=== PATIENT | male | born 1955 | race Caucasian/White ===

== ENCOUNTER → 2023-06-25 12:49 | Outpatient (BNVA) | payer MEDICARE, OTHER, SELFPAY | PROVIDERS: PCP Family Medicine; Visit Provider Family Medicine | DX: E78.00 Pure hypercholesterolemia, unspecified (principal); E11.9 Type 2 diabetes mellitus without complications; I10 Essential (primary) hypertension | CPT/HCPCS: 80053; 80061; 83036; 85025 ==

== ENCOUNTER → 2023-07-10 12:53 | Outpatient (BNVA) | payer MEDICARE, OTHER, SELFPAY | PROVIDERS: PCP Family Medicine; Visit Provider Family Medicine | DX: R07.9 Chest pain, unspecified (principal); I10 Essential (primary) hypertension; K92.2 Gastrointestinal hemorrhage, unspecified; K29.01 Acute gastritis with bleeding; E11.9 Type 2 diabetes mellitus without complications | CPT/HCPCS: 80053; 85025 ==

== ENCOUNTER → 2023-07-16 13:05 | Outpatient (BNVA) | payer MEDICARE, OTHER, SELFPAY | PROVIDERS: PCP Family Medicine; Visit Provider Surgery | DX: K27.9 Peptic ulcer, site unspecified, unspecified as acute or chronic, without hemorrhage or perforation (principal) | CPT/HCPCS: 99204 ==

== ENCOUNTER 2023-08-08 13:00 | Outpatient (CLI) | payer MEDICARE, OTHER, SELFPAY ==
--- NOTE | 2023-08-08 12:59 | MR_ITS ---
WS: [id number] MRI HEAD WITH CONTRAST WITH ATTENTION TO THE INTERNAL AUDITORY CANALS TECHNIQUE: Sagittal T1, T2 axial, T2 axial flair, axial susceptibility weighted imaging, axial diffus ion weighted images, and coronal T2 images were obtained. Pre and post T1 axial and post T1 coronal i mages. ADC and FSPGR images. Post gadolinium images with attention to the internal auditory canals. A xial fiesta imaging. CLINICAL INFORMATION: UNSPECIFIED HEARING LOSS, BILATERAL COMPARISON: None. FINDINGS: Enhancing lesion in the LEFT CP angle extending into the LEFT porus acusticus and IAC compatible with vestibular schwannoma. This measures approximately 10.8 x 7.4 mm. RIGHT 7th and 8th cranial nerves a re normal in appearance. Normal trigeminal nerve root entry zones. No evidence of restricted diffusion to suggest acute ischemia. Minimal small vessel changes. No signi ficant parenchymal volume loss. No hemosiderin on the susceptibly weighted images. Normal optic chias m and pituitary infundibulum. Temporal lobes and hippocampal formations are normal in appearance. No other suspicious findings. MR/MR iac's wo/w con* [id number] IMPRESSION: 1. No evidence of restricted diffusion to suggest acute ischemia. 2. Enhancing vestibular schwannoma within the LEFT CP angle extending into the porus acusticus and IAC. This measures approximately 10.8 x 7.4 mm. 3. RIGHT 7th and 8th cranial nerves are normal in appearance. 4. Normal trigeminal nerve root entry zones. 5. Minimal small vessel changes. No significant parenchymal volume loss. 6. No other acute findings.
[2023-08-08] MEDS: gadobenate dimeglumine 20 mL vial IV (13:36)
== END 2023-08-08 13:01 | disposition home or self-care (01) ==
PROVIDERS: PCP Family Medicine; Visit Provider Specialist
DX: H91.93 Unspecified hearing loss, bilateral (principal)
CPT/HCPCS: 70553; A9577

== ENCOUNTER 2023-08-13 08:39 | Day surgery (SDC) | payer MEDICARE, OTHER, SELFPAY ==
[2023-08-13 08:59] VITALS: BP 168/76; PULSE 76; RESP 18; TEMP 36.4; O2SAT 98; BMI 28.2
--- NOTE | 2023-08-13 09:13 | ANES.PREANE2 ---
Pre-Anesthetic Assessment Height/Weight: Height 1.68 m Weight 79.379 kg Temp Pulse Resp BP Pulse Ox O2 Del Method 97.6 F 76 18 168/76 98 Room Air 08/13/23 08:59 08/13/23 08:59 08/13/23 08:59 08/13/23 08:59 08/13/23 08:59 08/13/23 08:59 Operation Date: 08/13/23 09:45 Proposed Procedures p EGD 98062, K27.9(Not Applicable) - Kingston Santacruz MD Was Beta Elaine taken within 24 hours: N/A Was Clonidine taken within 24 hours: N/A Last intake: Intake Last Liquid Date 08/12/23 Last Liquid Time 22:00 Last Solid Date 08/12/23 Last Solid Time 22:00 Social Tobacco (cigars) Exam alert and oriented x 3 Airway Submandibular: within normal limits Cervical ROM: within normal limits Mallampati: Class II Dentition: full History/ROS No significant history except as noted Pulmonary Sleep Apnea (CPAP) CV/HEM Hypertension kidney stones Hepatic None reported GI history of bleeding ulcer Metabolic Diabetes Mellitus [facility] None reported Neuropsych None reported Anesthetic Plan ASA status: 2 Anesthesia: MAC Risk of > 500 ml blood loss (7ml/kg in children): No Medications/Allergies Home Medications Medication Instructions Recorded Confirmed Last Taken Type atorvastatin 10 mg tablet (Lipitor) 10 mg PO DAILY #90 tabs 06/25/23 08/08/23 08/12/23 Rx fenofibrate nanocrystallized 145 145 mg PO DAILY #90 tabs 06/25/23 08/08/23 08/12/23 Rx mg tablet loratadine 10 mg disintegrating 10 mg PO DAILY PRN allergy 06/25/23 08/08/23 08/12/23 Rx tablet (Allergy Relief symptoms #90 tabs (loratadine)) sitagliptin phosphate 100 mg 100 mg PO DAILY #90 tabs 07/12/23 08/08/23 08/12/23 Rx tablet (Januvia) pantoprazole 40 mg tablet,delayed 40 mg PO BID 6 weeks #84 tabs 07/16/23 08/08/23 08/13/23 07:45 Rx release (Protonix) sucralfate 100 mg/mL oral 10 ml PO BID 30 days #840 mL 05/08/08/23 08/12/23 Rx suspension tamsulosin 0.4 mg capsule (Flomax) 0.4 mg PO DAILY 08/08/23 08/08/23 08/12/23 History valsartan 40 mg tablet (Diovan) 40 mg PO BID 08/08/23 08/08/23 08/12/23 History atdhfblg-dn-oxkec 300 mcg-K 60 1 tab PO DAILY 08/13/23 08/13/23 08/12/23 History mcg-lycop 600 mcg-lutein 300 mcg tablet (Centrum Silver Men) omega-3 fatty acids-fish oil 360 1 cap PO DAILY 08/13/23 08/13/23 08/12/23 History mg-1,200 mg capsule (Fish Oil) Allergies Allergy/AdvReac Type Severity Reaction Status Date / Time hydrocodone AdvReac Intermediate ADR-Nightma Verified 08/08/23 11:02 re [facility] Anesthesia Medical History Essential hypertension Type 2 diabetes mellitus Hypercholesteremia Data Anesthesia Cardiac Studies: No Data to Display
[2023-08-13] MEDS: sodium chloride 0.9% 1,000 ML 30 ML IV (09:14)
--- NOTE | 2023-08-13 09:14 | P.HPUD_ITS ---
Surgery/Procedure H&P Update DATE OF PROCEDURE: August 13, 2023 DATE H&P PERFORMED: 07/16/23 H&P UPDATE INFORMATION: I have reviewed H&P completed within last 30 days, I have examined patient prior to procedure, No changes to prior documentation and H&P is in [facility] [place] on date indicated PLANNED PROCEDURE: Operation Date: 08/13/23 09:45 Proposed Procedures p EGD 94843, K27.9(Not Applicable) - Kingston Santacruz MD
[2023-08-13 09:22] LABS: Glucose Point of Care 141 mg/dL (70-110)
[2023-08-13 09:54] VITALS: BP 126/54; PULSE 62; RESP 18; TEMP 36.5; O2SAT 95
[2023-08-13 10:04] VITALS: BP 136/68; PULSE 66; RESP 16; O2SAT 96
--- NOTE | 2023-08-13 10:40 | ANE.PACU2 ---
Inpatient post-anesthesia follow up: Airway intact: Yes Vital signs: Temperature 97.7 F Pulse Rate 66 Respiratory Rate 16 Blood Pressure 136/68 Pulse Oximetry 96 Oxygen Delivery Me thod Room Air Oxygen Flow Rate Fraction of Inspir ed Oxygen Hydration adequate: Yes Nausea and vomiting: No Pain level: 1 Mental status: Baseline
== END 2023-08-13 10:40 | disposition home or self-care (01) ==
PROVIDERS: PCP Family Medicine; Visit Provider Surgery
PROC: 0DJ08ZZ Inspection of Upper Intestinal Tract, Via Natural or Artificial Opening Endoscopic (ICD-10-PCS; CPT 43235; principal; 2023-08-13 09:45)
DX: K27.9 Peptic ulcer, site unspecified, unspecified as acute or chronic, without hemorrhage or perforation (principal); K29.80 Duodenitis without bleeding; K29.50 Unspecified chronic gastritis without bleeding; E11.9 Type 2 diabetes mellitus without complications; E78.00 Pure hypercholesterolemia, unspecified
CPT/HCPCS: 36416; 43239; 82962; 88305; J2704; J7030

== ENCOUNTER → 2023-09-11 14:28 | Outpatient (BNVA) | payer MEDICARE, OTHER, SELFPAY | PROVIDERS: PCP Family Medicine; Visit Provider Surgery | DX: Z09 Encounter for follow-up examination after completed treatment for conditions other than malignant neoplasm (principal); R03.0 Elevated blood-pressure reading, without diagnosis of hypertension | CPT/HCPCS: 99213 ==

== ENCOUNTER → 2024-01-06 14:10 | Outpatient (BNVA) | payer MEDICARE, OTHER, SELFPAY | PROVIDERS: PCP Family Medicine; Visit Provider Family Medicine | DX: E11.9 Type 2 diabetes mellitus without complications (principal); E78.00 Pure hypercholesterolemia, unspecified | CPT/HCPCS: 80053; 82465; 83036 ==

== ENCOUNTER 2024-03-24 14:17 | Outpatient (CLI) | payer MEDICARE, OTHER, SELFPAY ==
--- NOTE | 2024-03-24 14:24 | MR_ITS ---
WS: [id number] MRI HEAD WITH CONTRAST WITH ATTENTION TO THE INTERNAL AUDITORY CANALS TECHNIQUE: Sagittal T1, T2 axial, T2 axial flair, axial susceptibility weighted imaging, axial diffusion weighted images, and coronal T2 images were obtained. Pre and post T1 axial and post T1 coronal images. ADC and FSPGR images. Post gadolinium images with attention to the internal auditory canals. Axial fiesta imaging. CLINICAL INFORMATION: ASYMMETRIC SNHL COMPARISON: MRI 08/08/2023 FINDINGS: Again seen is enhancing CP angle lesion extending into the LEFT porus acusticus and IAC compatible with vestibular schwannoma. This is not significantly changed compared to previous. Measurements are unchanged measuring 10.8 x 7.5 cm. No evidence of progression. RIGHT 7th and 8th cranial nerves are normal in appearance. Normal trigeminal nerve root entry zones. No evidence of restricted diffusion to suggest acute ischemia. Minimal small vessel changes. Small vessel changes in the anna. Minimal parenchymal volume loss. No hemosiderin on the susceptibly weighted images. Normal optic chiasm and pituitary infundibulum. Temporal lobes and hippocampal formations are normal in appearance. Incidental maryann cisterna magna. No other changes compared to previous MR/MR iac's wo/w con* [id number] IMPRESSION: 1. Unchanged LEFT vestibular schwannoma described above
[2024-03-24] MEDS: gadobenate dimeglumine 20 mL vial IV (15:22)
== END 2024-03-24 14:18 | disposition home or self-care (01) ==
LOC: RAD 14:18
PROVIDERS: PCP Family Medicine; Visit Provider Otolaryngology Otology & Neurotology
DX: H90.3 Sensorineural hearing loss, bilateral (principal); D33.3 Benign neoplasm of cranial nerves; R93.0 Abnormal findings on diagnostic imaging of skull and head, not elsewhere classified
CPT/HCPCS: 70553

== ENCOUNTER 2024-09-06 15:17 | Inpatient (IN) | payer MEDICARE, OTHER, SELFPAY ==
[2024-09-06] VITALS (11 sets, daily range): BP systolic 178–201; BP diastolic 82–106; PULSE 70–98; RESP 12–18; TEMP 36.8; O2SAT 98–100; BMI 30.8
--- NOTE | 2024-09-06 15:29 | CTR_ITS ---
PROCEDURE INFORMATION: Exam: CT Head Without Contrast Exam date and time: 09/06/2024 3:26 PM Age: 69 years old Clinical indication: Stroke-like symptoms; Altered mental status/memory loss; Additional info: Symptoms of acute stroke TECHNIQUE: Imaging protocol: Computed tomography of the head without contrast. Radiation optimization: All CT scans at this facility use at least one of these dose optimization techniques: automated exposure control; mA and/or kV adjustment per patient size (includes targeted exams where dose is matched to clinical indication); or iterative reconstruction. Other technique: STROKE PROTOCOL was implemented. COMPARISON: MR fitzgerald's wo/w con* [id number] 03/24/2024 2:39 PM RADIATION DOSE METRICS: Total DLP (mGy-cm): 1024.98 FINDINGS: Brain: No evidence of intra-axial or extra-axial hemorrhage. No mass effect or midline shift. Patchy hypoattenuation in the right frontal lobe white matter, age-indeterminate. Mclaughlin-white differentiation is otherwise maintained. Basilar cisterns are patent. Cerebral ventricles: No hydrocephalus. Paranasal sinuses: The visualized paranasal sinuses are well aerated. Mastoid air cells: The visualized mastoids and middle ears are clear. Bones: Calvarium is intact. No evidence of acute fracture. Soft tissues: No gross soft tissue abnormality. CT/CT head thrombolytic [id number] IMPRESSION: 1. Age-indeterminate right frontal lobe deep white matter hypodensities. Consider correlation with MRI for further evaluation. No evidence of large vascular territory infarct. ASSESSMENT: ASPECTS ([place] Stroke Program Early CT Score) is 10.
--- OUTSIDE RECORDS SUMMARY | 2024-09-06 15:29 | XMS_ITS | Clinical Summary ---
Author Organization [facility] Address [address] [place] [address] Care Team Providers Care Sales Operations Name Role Phone Unavailable Primary Care Provider Unavailabl e Allergies No known active allergies Medications SITagliptin phosphate (JANUVIA) 100 mg Tablet Take 100 mg by mouth daily with breakfast. Active pantoprazole (PROTONIX) 40 mg Tablet, Delayed Release (E.C.) Take 40 mg by mouth daily. Active tamsulosin (FLOMAX) 0.4 mg capsule Take 0.4 mg by mouth daily. Active valsartan (DIOVAN) 40 mg tablet Take 40 mg by mouth daily. Active Active Problems Problem Noted Date Diagnosed Date Unilateral vestibular schwannoma 01/07/2024 Asymmetric SNHL (sensorineural hearing loss) Encounters Date Type Department Care Team Description 08/11/2024 External Device Data [facility] ABSTRACTION Provider, Abstract 07/14/2024 External Device Data [facility] ABSTRACTION Provider, Abstract from Last 3 Months Family History Medical History Relation Name Comments Diabetes Father Diabetes Mother Diabetes Sister Hypertension Sister Relation Name Status Comments Father Mother Sister Social History Tobacco Use Types Packs/Day Years Used Date Smoking Tobacco: Former Cigarettes Q uit: 01/21/2004 Alcohol Use Standard Drinks/Week Comments Yes 1 (1 standard drink = 0.6 oz pur e alcohol) Sex and Gender Information Value Date Recorded Sex Assigned at Male 01/01/2024 3:01 PM [employer] Legal Sex Male 3:05 PM CDT Gender Identity Male 01/01/2024 3:01 PM [employer] Sexual Orientation Straight 01/01/2024 3: 01 PM [employer] Last Filed Vital Signs Vital Sign Reading Time Taken Comments Blood Pressure - - Pulse - - Temperature - - Respiratory Rate - - Oxygen Saturation - - Inhaled Oxygen Concentration - - Weight 89.9 kg (198 lb 3.2 oz) 01/07/2024 2:33 P M [employer] Height 167.6 cm (5' 6 ) 01/07/2024 2:33 PM [employer] Body Mass Index 31.99 01/07/2024 2:33 PM [employer] Plan of Treatment Health Maintenance Due Date Last Done Comments Pre-Diabetes and Diabetes Screening 1955 DTAP/TDAP/TD VACCINES (1 - Tdap) 1974 COLORECTAL SCREENING 2000 Colorectal Cancer Screening 2000 FIT-DNA Q 3 years 2000 FIT/FOBT Q 1 year 2000 Flex Sig/CT Colonography Q 5 years 2000 PNEUMOCOCCAL VACCINE 50+ YEARS (1 of 1 - PCV) 03/31/19 06 ZOSTER VACCINE (1 of 2) 2005 Abdominal Aortic Aneurysm (AAA) Screening 2020 INFLUENZA VACCINE (#1) 2024 RSV VACCINE (60+ or ) (1 - 1-dose 75+ series) 2030 Insurance [employer] MEDICARE PART A AND B
[2024-09-06 15:40] LABS: Hematocrit 37.6 % (37-53); Hemoglobin 12.50 g/dL (11.27-16.99); Mean Corpuscular HGB Conc 33.2 g/dL (30-55); Mean Corpuscular Hemoglobin 30.9 pg (27-33); Mean Corpuscular Volume 92.8 fl (82-101); Nucleated Red Blood Cells % 0 %; Platelet Count 166 10^3/cmm (157-399); Red Blood Count 4.05 10^6/uL (3.85-5.65); White Blood Count 7.98 10^3/uL (3.29-11.43)
[2024-09-06 15:48] LABS: INR 0.87 (0.8-1.2); Partial Thromboplastin Time 25.3 SECONDS (23.9-36.7); Prothrombin Time 12.50 SECONDS (12.1-14.9)
--- NOTE | 2024-09-06 15:52 | ECG_ITS ---
[facility] Date: 2024-09-06 Pat Name: Shay Mock Department: Room: Gender: Male Paper Stripper: : 1955 Requested By: Gracie Villalobos Order Number: [id number] Maria Victoria MD: Stiven Hendricks M.D. Measurements Intervals [place] Rate: 86 P: 58 IN: 140 QRS: 3 QRSD: 91 T: 52 QT: 370 QTc: 443 Interpretive Statements SINUS RHYTHM No previous ECG available for comparison Electronically Signed On 09-06-2024 18:32:57 CDT by Stiven Hendricks M.D. [id number] [email or web address]
--- NOTE | 2024-09-06 16:06 | MRR_ITS ---
PROCEDURE INFORMATION: Exam: MR Head Without Contrast Exam date and time: 09/06/2024 4:11 PM Age: 69 years old Clinical indication: Speech disturbance and weakness, extremity and weakness, facial; Right; Slurred speech; Additional info: AMS, right sided weakness, slurred speech TECHNIQUE: Imaging protocol: Magnetic resonance imaging of the head without contrast. COMPARISON: CT head thrombolytic [id number] 09/06/2024 3:26 PM FINDINGS: Brain: 6 mm focus of increased signal on diffusion-weighted images within the left basal ganglia in the region of the posterior limb of the internal capsule with mild decreased signal on ADC images suggestive of an acute-subacute infarct (image 14 of series 302/303). Background of periventricular and deep white matter T2 FLAIR hyperintensities compatible with sequela of mild chronic microvascular ischemic changes. Chronic infarct involving the body of the right corpus callosum. Again seen is a mass in the left cerebellar pontine angle extending into the porous acusticus compatible with a vestibular schwannoma, grossly unchanged since prior exam from March 2024. Cerebral ventricles: No hydrocephalus. Bones: Unremarkable. Paranasal sinuses: The visualized paranasal sinuses are well aerated. Mastoid air cells: The mastoids and middle ears are grossly clear without evidence of effusion. Orbital cavities: The visualized orbits are unremarkable. Soft tissues: Grossly unremarkable. MR/MR head wo con* [id number] IMPRESSION: 1. Acute-subacute subcentimeter left basal ganglia lacunar infarct. 2. Left-sided vestibular schwannoma.
[2024-09-06 16:23] LABS: Alanine Aminotransferase 7 U/L (0-41); Albumin Level 3.7 g/dL (3.5-5.2); Alkaline Phosphatase 35 U/L (40-130); Anion Gap 18.8 (5-19); Aspartate Amino Transferase 9 U/L (0-40); Blood Urea Nitrogen 46 mg/dL (8-23); Calcium 8.6 mg/dL (8.5-10.5); Carbon Dioxide 17 mmol/L (22-29); Chloride 109 mmol/L (98-107); Creatinine Clr Calc Pharmacy 22.4754; Globulin 2.5 g/dL (1.3-4.6); Glucose 184 mg/dL (65-115); Osmolality Calculated 305 mOsm/kg (285-295); Potassium 5.8 mmol/L (3.5-5.1); Sodium 139 mmol/L (136-145); Total Protein 6.2 g/dL (6.6-8.7)
--- NOTE | 2024-09-06 16:56 | DCPLANNER ---
Initiated Stroke call to [facility] @[phone]. The return call was @[phone]
[2024-09-06 17:37] LABS: Glucose Urine UA Negative (Normal); Nitrate Urine Negative (Negative); Specific Gravity, Urine 1.015 (1.005-1.030)
[2024-09-06 17:41] LABS: Add Urine Microscopic? YES
--- NOTE | 2024-09-06 18:04 | W.ED.NEUROSD ---
HPI - Neuro Symptoms/Deficit General: Chief Complaint: Neuro Symptoms/Deficit Stated Complaint: right side weakness Time Seen by Provider: 09/06/24 15:29 History of Present Illness: This patient is a 69-year-old male presenting to the ER with right-sided weakness and difficulty walking. He said he woke up at around 6 AM this morning and went to the bathroom with no difficulty. He went back to bed and woke up again about 10 AM. At that time he noted weakness on his right side, slurred speech, facial droop. He had some difficulty walking. He did not come into the ER until approximately 3:00 this afternoon. He was immediately recognized as a stroke and stroke alert was called. CT was done and did not show any acute infarct. MRI was available this afternoon and an MRI was done showing an acute left basal ganglia stroke. He also has a history of a left vestibular schwannoma which is followed by MRI. This appeared unchanged. Related Data Home Medications ?Medication ?Instructions ?Recorded ?Confirmed tamsulosin 0.4 mg capsule (Flomax) 0.4 mg PO DAILY 08/08/23 01/06/24 avmtgzph-er-rjtfn 300 mcg-K 60 1 tab PO DAILY 08/13/23 01/06/24 mcg-lycop 600 mcg-lutein 300 mcg tablet (Centrum Silver Men) omega-3 fatty acids-fish oil 360 1 cap PO DAILY 08/13/23 01/06/24 mg-1,200 mg capsule (Fish Oil) Previous Rx's ?Medication ?Instructions ?Recorded fenofibrate nanocrystallized 145 145 mg PO DAILY #90 tabs 06/25/23 mg tablet loratadine 10 mg disintegrating 10 mg PO DAILY PRN allergy 06/25/23 tablet (Allergy Relief symptoms #90 tabs (loratadine)) atorvastatin 20 mg tablet 20 mg PO DAILY #90 tabs 01/06/24 freestyle test strips/lancets #1 ea 04/06/24 pantoprazole 40 mg tablet,delayed 40 mg PO ONCE 30 days #30 tabs 05/11/24 release (Protonix) sitagliptin phosphate 100 mg See Rx Instructions .Route 06/01/24 tablet (Januvia) .COMPLEX #90 tabs valsartan 40 mg tablet See Rx Instructions .Route 07/27/24 .COMPLEX #180 tabs Allergies Allergy/AdvReac Type Severity Reaction Status Date / Time hydrocodone AdvReac Intermediate ADR-Nightma Verified 01/06/24 13:03 re [facility]: Medical History (Updated 09/06/24 @ 18:10 by Gracie Vincent MD) Essential hypertension Type 2 diabetes mellitus Hypercholesteremia Social History Smoking and tobacco/nicotine status: current every day tobacco/nicotine user NIH stroke score NIHSS: Motor Arm Right - 5: Drift Motor Leg Right - 6: Drift Dysarthia - 10: Mild/Moderate Dysarthia Physical Exam Const: COMMON NORMALS: no acute distress, patient oriented x3, no limitations and alert GENERAL APPEARANCE: cooperative and comfortable HENMT: HEAD & SCALP: normal to inspection FACE & SINUS: normal facial exam Eye: GENERAL EYE: appearance normal, both eyes and all related structures Neck/C-Spine: COMMON NORMALS: supple, no meningeal signs and no JVD Chest: COMMONS NORMALS: normal inspection of the chest Resp: COMMON NORMALS: normal respiratory effort, No use of accessory muscles and clear to auscultation bilaterally AUSCULTATION: clear to auscultation bilaterally Cardio: COMMON NORMALS: no JVD, regular rate, regular rhythm and No murmurs present (Cardio) RATE: regular rate RHYTHM: regular rhythm GI: COMMON NORMALS: Normal to inspection, nondistended, normoactive bowel sounds present, Soft to palpation and non-tender INSPECTION: Yes normal to inspection AUSCULTATION: Yes normoactive bowel sounds PALPATION: Yes Soft to palpation Back/Pelvis: COMMON NORMALS: thoracic and lumbar spine normal to inspection Extremity: COMMON NORMALS: normal to inspection Neuro: COMMON NORMALS: patient oriented x3, moves all extremities and no sensory deficits noted SENSORIUM/ORIENTATION: Yes alert MENINGEAL SIGNS: Yes no meningeal signs CRANIAL NERVES: Yes CN normal except as noted and No CN VIII (vestibulocochlear) OTHER: Mildly dysarthric. Tongue protrudes in the midline. Swallowing is intact. 4+ out of 5 strength in the right upper and right lower. Some ataxia although this may be strength related. Visual small intact. Sensation intact. Right facial droop is noted. Psych: COMMON NORMALS: mental status grossly normal, cooperative and normal affect Skin: COMMON NORMALS: no rashes or lesions noted and turgor normal GENERAL SKIN EXAM: no rashes or lesions noted and turgor normal Course Vital Signs: Vital signs: Vital Signs Temperature 98.2 F 09/06/24 15:20 Pulse Rate 70 09/06/24 17:26 Respiratory Rate 16 09/06/24 15:20 Blood Pressure 186/90 09/06/24 17:26 Pulse Oximetry 99 09/06/24 17:26 Oxygen Delivery Me thod Room Air 09/06/24 17:26 MDM - Neuro Symptoms/Deficit Medical Decision Making Patient with an acute left basal ganglia lacunar infarct consistent with physical exam. He has a history of hypertension and diabetes. His blood pressure was in the 170s for the majority of his ED stay. He also has a history of stage IV kidney disease which is slightly worse than baseline today. His CO2 is 17 and his potassium 5.8. There is no EKG changes associated with hyperkalemia. The patient did not recall that he had a kidney problem but his was aware of this. I suspect he has some underlying memory issues. Discussed with the neurologist at [facility]. There was nothing to be done as far as intervention based on the patient being outside the time window, low stroke scale and no large vessel occlusion. He will be admitted by the hospitalist here for further evaluation and secondary prevention. Lab Data 09/06/24 15:30 09/06/24 15:[address] 09/06/24 15:29 IMPRESSION: 1. Age-indeterminate right frontal lobe deep white matter hypodensities. Consider correlation with MRI for further evaluation. No evidence of large vascular territory infarct. ASSESSMENT: ASPECTS ([place] Stroke Program Early CT Score) is 10. ADDENDUM: 09/06/24 1553 Left-sided vestibular schwannoma noted corresponding to finding from MRI March 2024. The findings were verbally communicated by telephone with Dr. VINCENT at 3:49 PM CDT on 09/06/2024. Head MRI 09/06/24 16:06 IMPRESSION: 1. Acute-subacute subcentimeter left basal ganglia lacunar infarct. 2. Left-sided vestibular schwannoma. Laboratory Results WBC 7.98 10^3/uL (3.29-11.43) 09/06/24 15:30 RBC 4.05 10^6/uL (3.85-5.65) 09/06/24 15:30 Hgb 12.50 g/dL (11.27-16.99) 09/06/24 15:30 Hct 37.6 % (37-53) 09/06/24 15:30 MCV 92.8 fl (82-101) 09/06/24 15:30 MCH 30.9 pg (27-33) 09/06/24 15:30 MCHC 33.2 g/dL (30-55) 09/06/24 15:30 RDW 12.6 % (12.1-15.1) 09/06/24 15:30 Plt Count 166 10^3/cmm (157-399) 09/06/24 15:30 MPV 9.7 fL (7.4-10.4) 09/06/24 15:30 Neut % (Auto) 71.0 % 09/06/24 15:30 Lymph % (Auto) 18.5 % 09/06/24 15:30 [place] % (Auto) 5.9 % 09/06/24 15:30 Eos % (Auto) 2.8 % 09/06/24 15:30 Baso % (Auto) 0.9 % 09/06/24 15:30 Neut # (Auto) 5.67 10^3/uL (1.8-7.7) 09/06/24 15:30 Lymph # (Auto) 1.5 10^3/uL (0.8-4.8) 09/06/24 15:30 [place] # (Auto) 0.5 10^3/uL (0.2-0.9) 09/06/24 15:30 Eos # (Auto) 0.2 10^3/uL (0.0-0.8) 09/06/24 15:30 Baso # (Auto) 0.1 10^3/uL (0.0-0.1) 09/06/24 15:30 Nucleated RBC % (auto) 0 % 09/06/24 15:30 Nucleated RBCs # 0.0 /100WBC 09/06/24 15:30 PT 12.50 SECONDS (12.1-14.9) 09/06/24 15:30 INR 0.87 (0.8-1.2) 09/06/24 15:30 APTT 25.3 SECONDS (23.9-36.7) 09/06/24 15:30 Sodium 139 mmol/L (136-145) 09/06/24 15:30 Potassium 5.8 mmol/L (3.5-5.1) H 09/06/24 15:30 Chloride 109 mmol/L (98-107) H 09/06/24 15:30 Carbon Dioxide 17 mmol/L (22-29) L 09/06/24 15:30 Anion Gap 18.8 (5-19) 09/06/24 15:30 BUN 46 mg/dL (8-23) H 09/06/24 15:30 Creatinine 3.2 mg/dL (0.7-1.2) H 09/06/24 15:30 GFR Calculation 19.4 mL/min (90-130) L 09/06/24 15:30 Glucose 184 mg/dL (65-115) H 09/06/24 15:30 POC Glucose 204 mg/dL (70-110) H 09/06/24 15:24 Calculated Osmolality 305 mOsm/kg (285-295) H 09/06/24 15:30 Calcium 8.6 mg/dL (8.5-10.5) 09/06/24 15:30 Total Bilirubin 0.2 mg/dL (0.15-1.2) 09/06/24 15:30 AST 9 U/L (0-40) 09/06/24 15:30 ALT 7 U/L (0-41) 09/06/24 15:30 Alkaline Phosphatase 35 U/L (40-130) L 09/06/24 15:30 Total Protein 6.2 g/dL (6.6-8.7) L 09/06/24 15:30 Albumin 3.7 g/dL (3.5-5.2) 09/06/24 15:30 Globulin 2.5 g/dL (1.3-4.6) 09/06/24 15:30 All radiology interpretation(s) finalized by discharge Discharge Plan Discharge Patient Disposition: Placed in Observation Admit Provider: Houston Ramos Clinical Impression: Cerebrovascular accident, Kidney injury, Type 2 diabetes mellitus, Chronic kidney disease Coding Level of Care Code ED Loom Technician for Hannah Moise
--- NOTE | 2024-09-06 18:19 | PM.HP ---
Providers/Chief Complaint Admitting Physician: Houston Ramos MD Primary Care Provider: Irasema Hess MD Chief Complaint: right side weakness History of Present Illness Shay Mock is a 69 year old male with a past medical history of type 2 diabetes mellitus who presents to [facility] due to right-sided weakness, word finding difficulty, slurring of his words, right-sided facial droop, difficulty walking. Patient tells me that he woke up about 6 AM this morning, went to the bathroom had no significant issues, he went to bed, at about 10 AM this morning when he woke up he noted right-sided weakness, slurred speech, facial droop, had difficulty walking, he did not come to the emergency room until 3 PM, CT head no acute findings, MRI of the brain shows acute left basal ganglia stroke, his NIH stroke score, upon examination his NIH stroke scale is 5, he is out of the window for tPA, C has been consulted by ER provider, who recommended medical management, Review of Systems Const: Denies: fever(s) Card: Denies: chest pain Neuro: Reports: weakness in extremities and lack of coordination; Denies: headache(s) Medications/Allergies Home Medications ?Medication ?Instructions ?Recorded ?Confirmed ?Last Taken ?Type fenofibrate nanocrystallized 145 145 mg PO DAILY #90 tabs 06/25/23 01/06/24 08/12/23 Rx mg tablet loratadine 10 mg disintegrating 10 mg PO DAILY PRN allergy 06/25/23 01/06/24 08/12/23 Rx tablet (Allergy Relief symptoms #90 tabs (loratadine)) tamsulosin 0.4 mg capsule (Flomax) 0.4 mg PO DAILY 08/08/23 01/06/24 08/12/23 History kuibpbav-gm-zblcn 300 mcg-K 60 1 tab PO DAILY 08/13/23 01/06/24 08/12/23 History mcg-lycop 600 mcg-lutein 300 mcg tablet (Centrum Silver Men) omega-3 fatty acids-fish oil 360 1 cap PO DAILY 08/13/23 01/06/24 08/12/23 History mg-1,200 mg capsule (Fish Oil) atorvastatin 20 mg tablet 20 mg PO DAILY #90 tabs 01/06/24 01/06/24 Unknown Rx freestyle test strips/lancets #1 ea 04/06/24 Unknown Rx pantoprazole 40 mg tablet,delayed 40 mg PO ONCE 30 days #30 tabs 05/11/24 Unknown Rx release (Protonix) sitagliptin phosphate 100 mg See Rx Instructions .Route 06/01/24 Unknown Rx tablet (Januvia) .COMPLEX #90 tabs valsartan 40 mg tablet See Rx Instructions .Route 07/27/24 Unknown Rx .COMPLEX #180 tabs Allergies Allergy/AdvReac Type Severity Reaction Status Date / Time hydrocodone AdvReac Intermediate ADR-Nightma Verified 01/06/24 13:03 re PFSH Acute PFSH: Medical History Essential hypertension Type 2 diabetes mellitus Hypercholesteremia Social History (Updated 09/06/24 @ 18:23 by Houston Ramos MD) Smoking and tobacco/nicotine status: current every day tobacco/nicotine user Alcohol intake: never Substance/Drug Use: never Vitals/I&O/Wt Last Vital Signs Temp 98.2 F 09/06/24 15:20 Pulse 70 09/06/24 17:26 Resp 16 09/06/24 15:20 BP 186/90 09/06/24 17:26 Pulse Ox 99 09/06/24 17:26 O2 Del Method Room Air 09/06/24 17:26 09/06/24 09/06/24 09/06/24 06:59 14:59 22:59 Intake Total 0 / 0 Balance 0 / 0 Weight last 48 hrs Weight 86.636 kg Weight 86.636 kg Physical Exam Const: COMMON NORMALS: no acute distress and patient oriented x3 HENMT: COMMON NORMALS: normocephalic HEAD & SCALP: normocephalic Neck/C-Spine: COMMON NORMALS: no JVD Resp: COMMON NORMALS: normal respiratory effort, No retractions, No use of accessory muscles and clear to auscultation bilaterally AUSCULTATION: clear to auscultation bilaterally Cardio: COMMON NORMALS: no JVD, regular rate, regular rhythm, S1 normal heart sound present and S2 normal heart sound present RATE: regular rate RHYTHM: regular rhythm HEART SOUNDS: S1 normal heart sound present and S2 normal heart sound present GI: COMMON NORMALS: Normal to inspection, nondistended, normoactive bowel sounds present, Soft to palpation and non-tender Extremity: COMMON NORMALS: no calf tenderness and no pedal edema Neuro: COMMON NORMALS: patient oriented x3 OTHER: Minor right sided facial droop, minor slurring of his words, minor word finding difficulty, manager primary care strength to me seems equal bilaterally, bilateral extremity strength looks equal, he does have abnormal xqpwvk-ea-mmwh, abnormal hbpw-db-culu, NIH stroke scale is 5, no visual deficits, PERRLA, extraocular movements intact Psych: COMMON NORMALS: mental status grossly normal Data 09/06/24 15:30 09/06/24 15:30 A&P Assessment and plan 1. Acute CVA (cerebrovascular accident): 2. Hyperkalemia: 3. Essential hypertension: 4. Hypercholesteremia: 5. Type 2 diabetes mellitus: 6. Peptic ulcer disease: 7. Chronic renal insufficiency, stage II (mild): Plan: Acute CVA - Right-sided deficits - NIH stroke scale 5 - Out of the window for tPA - [facility] contacted - CT head no acute findings - MRI brain shows acute to subacute subcentimeter left basal ganglia lacunar infarct, left-sided vestibular schwannoma Plan - Aspirin, statin, Plavix - Allow for permissive hypertension - Bedside swallow eval - Speech therapy eval - PT OT - Treat if systolic blood pressure greater than 220 or diastolic greater than 120 - Cardiac echo - Carotid artery ultrasound - Telemetry monitoring - A1c, low-dose insulin sliding scale -History of gastric ulcer, Protonix, Carafate -Hypokalemia will order 10 units of insulin, D10, Kayexalate, check potassium at 9 PM -Acute kidney injury, on CKD, creatinine 3.2, IV fluids -Metabolic acidosis, IV fluids, recheck BMP at 9 PM -Neurochecks, no stroke scale - Lipid panel - Full code - Lovenox for DVT prophylaxis PDMP PDMP Reviewed: Not Reviewed Attestations Medical Necessity Statement*: Patient requires hospitalization, inpatient, greater than 2 midnights, for acute CVA Diagnoses Acute CVA (cerebrovascular accident) I63.9 Hyperkalemia E87.5 Essential hypertension I10 Hypercholesteremia E78.00 Type 2 diabetes mellitus E11.9 Peptic ulcer disease K27.9 Chronic renal insufficiency, stage II (mild) N18.2
--- OUTSIDE RECORDS SUMMARY | 2024-09-06 18:27 | XMS_ITS | Clinical Summary ---
Author Organization [facility] Address [address] [place] [address] Care Team Providers Care Exhauster Name Role Phone Unavailable Primary Care Provider [...] Sex Assigned at Male 01/01/2024 3:01 PM [employer] Legal Sex Male 3:05 PM CDT Gender Identity Male 01/01/2024 3:01 PM [employer] Sexual Orientation Straight 01/01/2024 3: 01 PM [employer] Last Filed Vital Signs Vital Sign Reading Time Taken Comments Blood Pressure - - Pulse - - Temperature - - Respiratory Rate - - Oxygen Saturation - - Inhaled Oxygen Concentration - - Weight 89.9 kg (198 lb 3.2 oz) 01/07/2024 2:33 P M [employer] Height 167.6 cm (5' 6 ) 01/07/2024 2:33 PM [employer] Body Mass Index 31.99 01/07/2024 2:33 PM [employer]CH[employer] Plan of Treatment Health Maintenance Due Date [...] (1 - 1-dose 75+ series) 2030 Insurance [employer] MEDICARE PART A AND B
[2024-09-06] MEDS: sucralfate 1 gm/10 mL Oral Liq UDC PO (18:38)
[2024-09-06] MEDS: pantoprazole 40 mg SDV IVP (18:39)
[2024-09-06 18:46] LABS: Cholesterol 207 mg/dL (0-200); HDL Cholesterol 34 mg/dL (60-100); NT Pro B Type Natriuretic Pept 1217 pg/mL (0-125); Thyroid Stimulating Hormone 2.14 uIU/mL (0.27-4.20); Triglycerides 244 mg/dL (0-150)
[2024-09-06 19:01] LABS: INR 0.89 (0.8-1.2); Prothrombin Time 12.70 SECONDS (12.1-14.9)
[2024-09-06 19:02] LABS: Partial Thromboplastin Time 25.9 SECONDS (23.9-36.7)
[2024-09-06] MEDS: insulin regular-human 100 units/1 mL 10 UNIT IVP (19:09)
[2024-09-06 20:28] LABS: Estmated Average Glucose 140; Hemoglobin A1C 6.5 % (4.0-6.0)
[2024-09-06 21:32] LABS: Anion Gap 20.6 (5-19); Blood Urea Nitrogen 41 mg/dL (8-23); Calcium 8.6 mg/dL (8.5-10.5); Carbon Dioxide 18 mmol/L (22-29); Chloride 107 mmol/L (98-107); Creatinine Clr Calc Pharmacy 23.2005; Glucose 118 mg/dL (65-115); Osmolality Calculated 303 mOsm/kg (285-295); Potassium 4.6 mmol/L (3.5-5.1); Sodium 141 mmol/L (136-145)
[2024-09-07] VITALS (88 sets, daily range): BP systolic 70–224; BP diastolic 52–119; PULSE 0–79; RESP 12–23; TEMP 36.9–37.2; O2SAT 95–100; BMI 23.1
--- NOTE | 2024-09-07 01:45 | PC.NURSE ---
Patient arrived from ED at 0033. Alert and oriented x4. Standby assist as patient transferred from bed to bed.
[2024-09-07 04:57] LABS: Hematocrit 33.9 % (37-53); Hemoglobin 11.10 g/dL (11.27-16.99); Mean Corpuscular HGB Conc 32.7 g/dL (30-55); Mean Corpuscular Hemoglobin 30.9 pg (27-33); Mean Corpuscular Volume 94.4 fl (82-101); Nucleated Red Blood Cells % 0 %; Platelet Count 153 10^3/cmm (157-399); Red Blood Count 3.59 10^6/uL (3.85-5.65); White Blood Count 7.20 10^3/uL (3.29-11.43)
[2024-09-07 05:23] LABS: Alanine Aminotransferase 6 U/L (0-41); Albumin Level 3.2 g/dL (3.5-5.2); Alkaline Phosphatase 30 U/L (40-130); Anion Gap 15.4 (5-19); Aspartate Amino Transferase 11 U/L (0-40); Blood Urea Nitrogen 40 mg/dL (8-23); Calcium 8.0 mg/dL (8.5-10.5); Carbon Dioxide 20 mmol/L (22-29); Chloride 110 mmol/L (98-107); Creatinine Clr Calc Pharmacy 21.8392; Globulin 2.2 g/dL (1.3-4.6); Glucose 92 mg/dL (65-115); Magnesium 1.3 mg/dL (1.7-2.3); Osmolality Calculated 299 mOsm/kg (285-295); Potassium 5.4 mmol/L (3.5-5.1); Sodium 140 mmol/L (136-145); Total Protein 5.4 g/dL (6.6-8.7)
[2024-09-07] MEDS: sucralfate 1 gm/10 mL Oral Liq UDC PO ×3 (05:59→18:05)
[2024-09-07] MEDS: pantoprazole 40 mg SDV IVP ×2 (05:59→18:08)
--- NOTE | 2024-09-07 08:27 | PC.PHAR ---
Pts' , Neil takes care of medications. Left a message 8:28am 09/07/24 for a med rec.
--- NOTE | 2024-09-07 17:17 | P.PN_ITS ---
Subjective 2 Subjective: Patient was seen this morning, currently alert oriented x 3, following all commands, minimal right facial droop, continues to have trouble coordinating, no trouble swallowing, no word finding difficulty Vitals/I&O/Wt Last Vital Signs Temp 98.9 F 09/07/24 01:56 Pulse 71 09/07/24 12:30 Resp 15 09/07/24 12:30 BP 163/85 09/07/24 10:00 Pulse Ox 98 09/07/24 12:30 O2 Del Method Room Air 09/07/24 12:30 09/07/24 09/07/24 09/07/24 06:59 14:59 22:59 Intake Total 360 / 360 Output Total 400 / 400 Balance -400 / 350 360 / 360 Weight last 48 hrs Weight 64.96 kg Weight 64.864 kg Weight 86.636 kg Weight 86.636 kg Physical Exam 2 Const: COMMON NORMALS: no acute distress and patient oriented x3 Resp: COMMON NORMALS: normal respiratory effort, No retractions, No use of accessory muscles and clear to auscultation bilaterally AUSCULTATION: clear to auscultation bilaterally Cardio: COMMON NORMALS: regular rate, regular rhythm, S1 normal heart sound present and S2 normal heart sound present RATE: regular rate RHYTHM: r egular rhythm HEART SOUNDS: S1 normal heart sound present and S2 normal heart sound present GI: COMMON NORMALS: Normal to inspection, nondistended, normoactive bowel sounds present and non-tender Extremity: COMMON NORMALS: no pedal edema Neuro: COMMON NORMALS: patient oriented x3 Psych: COMMON NORMALS: mental status grossly normal Data 09/07/24 03:40 09/07/24 03:40 A&P Assessment and plan 1. Acute CVA (cerebrovascular accident): 2. Hyperkalemia: 3. Essential hypertension: 4. Hypercholesteremia: 5. Type 2 diabetes mellitus: 6. Peptic ulcer disease: 7. Chronic renal insufficiency, stage II (mild): Plan: Acute CVA - Right-sided deficits - NIH stroke scale 5 - Out of the window for tPA - [facility] contacted - CT head no acute findings - MRI brain shows acute to subacute subcentimeter left basal ganglia lacunar infarct, left-sided vestibular schwannoma Plan - Aspirin, statin, Plavix - Allow for permissive hypertension - Bedside swallow eval - Speech therapy eval - PT OT - Treat if systolic blood pressure greater than 220 or diastolic greater than 120 - Cardiac echo CONCLUSIONS LV systolic function is normal with EF of 60-65% Grade 1 diastolic dysfunction Mild mitral regurgitation No comparison studies are available. - Carotid artery ultrasound CONCLUSIONS Right ICA stenosis 50-69%. Left ICA stenosis < 50%. - Telemetry monitoring - A1c 6.5, low-dose insulin sliding scale -History of gastric ulcer, Protonix, Carafate -Hyperkalemia recheck this afternoon -Acute kidney injury, on CKD, creatinine 0.9 IV fluids -Metabolic acidosis, IV fluids, recheck BMP at 6 PM -Neurochecks, no stroke scale - Lipid panel - Full code - Lovenox for DVT prophylaxis PDMP PDMP Reviewed: Not Reviewed Attestations 2 Medical Necessity Statement*: Patient requires hospitalization for acute CVA Diagnoses Acute CVA (cerebrovascular accident) I63.9 Hyperkalemia E87.5 Essential hypertension I10 Hypercholesteremia E78.00 Type 2 diabetes mellitus E11.9 Peptic ulcer disease K27.9 Chronic renal insufficiency, stage II (mild) N18.2
--- NOTE | 2024-09-07 18:12 | USCV_ITS ---
HowieShay layne Age: 69 Gender: M : 1955 Exam Date: 09/07/2024 09:18 Ordering Phys: Houston Ramos MD Technologist: [place] [facility] [place]va Risk Factors: Previous Vascular Surgery: Right Brachial BP: / Left Brachial BP: / Right Left Velocity (cm/s) Spectral Plaque Velocity (cm/s) Spectral Plaque Syst/Diast Broadening Syst/Diast Broadening 54.30/ 10.20 Prox CCA 111.00/ 20.40 51.70/ 12.80 Mid CCA 74.40 / 14.10 57.70/ 14.00 Hetro Distal CCA 71.60 / 13.90 Hetro 129.00/30.00 Pedro Prox ICA 118.00/ 20.00 Pedro 124.60/28.90 Hetro Mid ICA 113.60/ 29.00 Hetro 110.10/31.00 Distal ICA 92.60 / 22.10 188.60 ECA 126.60 2.20 ICA/CCA 1.60 Antegrade Vertebral Antegrade 66.40/ 14.40 cm/s 36.50/ 8.40 cm/s Tri Subclavian Tri 127.5 59.80 0 FINDINGS Comparison: none available. Diffuse bilateral scattered calcified plaque and intimal thickening throughout the common carotid arteries and extending through the bifurcation. Antegrade vertebral arteries. CONCLUSIONS Right ICA stenosis 50-69%. Left ICA stenosis < 50%. Dr. Chantell Castro DO (Electronically Signed) Final Date: 07 September 2024 13:59 S
--- NOTE | 2024-09-07 18:12 | USCV_ITS ---
Shay Mock Age: 69 Gender: M : 1955 Exam Date: 09/07/2024 09:04 Ordering Phys: Houston Ramos MD Technologist: Exam Location: [facility] [place] Indication: cva BP: 210 / 116 HR: 71 Rhythm: Sinus Technical Quality: Adequate MEASUREMENTS (Male / Female) Normal Values 2D ECHO LV Diastolic Diameter PLAX 5.2 cm 4.2 - 5.9 / 3.9 - 5.3 cm IVS Diastolic Thickness 1.3 cm 0.6 - 1.0 / 0.6 - 0.9 cm IVS Systolic Thickness 2.4 cm LVPW Diastolic Thickness 1.6 cm 0.6 - 1.0 / 0.6 - 0.9 cm LVPW Systolic Thickness 2.8 cm LVOT Diameter 2.1 cm LV Ejection Fraction 2D Teich 66.6 % LV Ejection Fraction MOD 4C 70.1 % LV Ejection Fraction MOD 2C 65.7 % LV Ejection Fraction 2C AL 65.1 % LA Diameter 3.7 cm RA Systolic Volume 4C AL 47.5 ml RA Systolic Volume 4C MOD 44.8 ml Aorta at Sinotubular Diameter 2.8 cm IVC Diameter 1.8 cm M-MODE LA Ao Ratio MM 1.2 AV Cusp Separation MM 2.3 cm DOPPLER AV Peak Velocity 202.5 cm/s LVOT Peak Velocity 98.0 cm/s AV Area Cont Eq vti 2.5 cm squared AV Area Cont Eq pk 1.7 cm squared MV Peak Velocity 122.0 cm/s MV Area PHT 2.7 cm squared Mitral E to A Ratio 0.7 TV Peak Velocity 177.5 cm/s TR Peak Velocity 192.0 cm/s TR Peak Gradient 14.7 mmHg TV Peak E Velocity 81.0 cm/s PV Peak Velocity 114.0 cm/s FINDINGS Left Ventricle Left ventricular is normal in size. LV systolic function is normal with EF of 60-65%. No regional wall motion abnormalities are seen. Grade 1 diastolic dysfunction. Right Ventricle Normal in size and function Right Atrium Normal in size Left Atrium Normal in size Mitral Valve Structurally normal mitral valve. Mild mitral regurgitation. Aortic Valve Grossly normal aortic valve. No significant stenosis or regurgitation. Tricuspid Valve Insufficient TR jet to calculate RVSP. Pulmonic Valve Not well visualized Pericardium Normal Aorta Normal in size IVC Appears to be normal CONCLUSIONS LV systolic function is normal with EF of 60-65% Grade 1 diastolic dysfunction Mild mitral regurgitation No comparison studies are available. Sathya Appiah MD (Electronically Signed) Final Date: 07 September 2024 16:59 S
[2024-09-07 19:38] LABS: Anion Gap 19.2 (5-19); Blood Urea Nitrogen 39 mg/dL (8-23); Calcium 8.2 mg/dL (8.5-10.5); Carbon Dioxide 18 mmol/L (22-29); Chloride 108 mmol/L (98-107); Creatinine Clr Calc Pharmacy 22.6327; Glucose 170 mg/dL (65-115); Osmolality Calculated 303 mOsm/kg (285-295); Potassium 5.2 mmol/L (3.5-5.1); Sodium 140 mmol/L (136-145)
[2024-09-08] VITALS (132 sets, daily range): BP systolic 160–211; BP diastolic 64–99; PULSE 51–89; RESP 0–26; TEMP 36.6–36.8; O2SAT 90–100
[2024-09-08] MEDS: sucralfate 1 gm/10 mL Oral Liq UDC PO ×5 (01:19→23:48)
[2024-09-08 05:36] LABS: Hematocrit 34.4 % (37-53); Hemoglobin 11.10 g/dL (11.27-16.99); Mean Corpuscular HGB Conc 32.3 g/dL (30-55); Mean Corpuscular Hemoglobin 30.3 pg (27-33); Mean Corpuscular Volume 94.0 fl (82-101); Nucleated Red Blood Cells % 0 %; Platelet Count 155 10^3/cmm (157-399); Red Blood Count 3.66 10^6/uL (3.85-5.65); White Blood Count 6.52 10^3/uL (3.29-11.43)
[2024-09-08 06:08] LABS: Alanine Aminotransferase 7 U/L (0-41); Albumin Level 3.2 g/dL (3.5-5.2); Alkaline Phosphatase 33 U/L (40-130); Anion Gap 16.4 (5-19); Aspartate Amino Transferase 9 U/L (0-40); Blood Urea Nitrogen 37 mg/dL (8-23); Calcium 8.1 mg/dL (8.5-10.5); Carbon Dioxide 20 mmol/L (22-29); Chloride 112 mmol/L (98-107); Creatinine Clr Calc Pharmacy 22.6327; Globulin 2.3 g/dL (1.3-4.6); Glucose 111 mg/dL (65-115); Magnesium 1.4 mg/dL (1.7-2.3); Osmolality Calculated 305 mOsm/kg (285-295); Potassium 5.4 mmol/L (3.5-5.1); Sodium 143 mmol/L (136-145); Total Protein 5.5 g/dL (6.6-8.7)
[2024-09-08] MEDS: pantoprazole 40 mg SDV IVP ×2 (06:51→17:23)
[2024-09-08 12:51] LABS: Blood Urea Nitrogen 37 mg/dL (8-23); Calcium 8.2 mg/dL (8.5-10.5); Carbon Dioxide 19 mmol/L (22-29); Chloride 109 mmol/L (98-107); Creatinine Clr Calc Pharmacy 23.5103; Glucose 118 mg/dL (65-115); Osmolality Calculated 298 mOsm/kg (285-295); Sodium 139 mmol/L (136-145)
[2024-09-08 12:55] LABS: Anion Gap 16.6 (5-19); Potassium 5.6 mmol/L (3.5-5.1)
--- NOTE | 2024-09-08 13:21 | US_ITS ---
WS: [id number] RENAL ULTRASOUND HISTORY: salma COMPARISON: None available. TECHNIQUE: 2-D and color Doppler imaging of the kidney submitted. Right kidney: 11.5 cm x 6.6 cm x 5.8 cm. Cortex: 1.2 cm Marked increased echogenicity throughout the RIGHT kidney. Loss of the cortical measured differentiation. Cortical cyst upper pole 1.7 x 1.8 x 1.8 cm. No obstruction. No mass. Left kidney: 10.0 cm x 6.3 cm x 5.6 cm. Cortex: 1.3 cm Marked increased echogenicity. Loss of the normal cortical medullary differentiation with a few scattered tiny cortical cysts. No solid mass. No obstruction. Aorta: Mild atherosclerosis aorta. Urinary Bladder: Normal distention. US/US renal BI* [id number] IMPRESSION: 1. Severe chronic medical renal disease. 2. No renal obstruction. Bilateral acquired renal cysts.
[2024-09-08] MEDS: insulin regular-human 100 units/1 mL 10 UNIT IVP (13:40)
--- NOTE | 2024-09-08 17:25 | PM.PN ---
Subjective Subjective: Patient was seen this morning, currently alert oriented x 3, following all commands, minimal right facial droop no slurring of words, focal weakness improving - Blood pressures are in the 190s over 100, discussed titrating his blood pressure today - His creatinine is 2.7 but is developing hyperkalemia potassium 5.4 - Discussed rechecking kidney function this afternoon, creatinine is down to 2.7, however potassium is 5.6, will start him on IV fluids, insulin/D10/Kayexalate, renal ultrasound ordered - Blood pressure this afternoon remains 190s over 80s, will continue to add on blood pressure medications Vitals/I&O/Wt Last Vital Signs Temp 98.2 F 09/08/24 08:00 Pulse 86 09/08/24 16:00 Resp 19 H 09/08/24 16:00 BP 172/88 09/08/24 16:00 Pulse Ox 98 09/08/24 16:00 O2 Del Method Room Air 09/08/24 16:00 09/08/24 09/08/24 09/08/24 06:59 14:59 22:59 Intake Total 480 / 480 237.5 / 717.5 Output Total 750 / 750 Balance -750 / -270 480 / 480 237.5 / 717.5 Weight last 48 hrs Weight 65.23 kg Weight 64.96 kg Weight 64.864 kg Physical Exam Const: COMMON NORMALS: no acute distress and patient oriented x3 Resp: COMMON NORMALS: normal respiratory effort, No retractions, No use of accessory muscles and clear to auscultation bilaterally AUSCULTATION: clear to auscultation bilaterally Cardio: COMMON NORMALS: regular rate, regular rhythm, S1 normal heart sound present and S2 normal heart sound present RATE: regular rate RHYTHM: regular rhythm HEART SOUNDS: S1 normal heart sound present and S2 normal heart sound present GI: COMMON NORMALS: Normal to inspection, nondistended, normoactive bowel sounds present and non-tender Extremity: COMMON NORMALS: no pedal edema Neuro: COMMON NORMALS: patient oriented x3, CN's II-XII intact bilaterally and moves all extremities OTHER: Very slight right facial droop, no other focal weakness I could discern Psych: COMMON NORMALS: mental status grossly normal Data 09/08/24 04:09 09/08/24 12:00 A&P Assessment and plan 1. Acute CVA (cerebrovascular accident): 2. Hyperkalemia: 3. Essential hypertension: 4. Hypercholesteremia: 5. Type 2 diabetes mellitus: 6. Peptic ulcer disease: 7. Chronic renal insufficiency, stage II (mild): Plan: Acute CVA - Right-sided deficits - NIH stroke scale 5 - Out of the window for tPA - [facility] contacted - CT head no acute findings - MRI brain shows acute to subacute subcentimeter left basal ganglia lacunar infarct, left-sided vestibular schwannoma Plan - Aspirin, statin, Plavix - Allow for permissive hypertension completed window, started chlorthalidone 25 mg daily, Norvasc 10 mg daily, hydralazine 10 4 times daily, avoiding SARKIS/ARB given hyperkalemia - Bedside swallow eval - Speech therapy eval - PT OT - Cardiac echo CONCLUSIONS LV systolic function is normal with EF of 60-65% Grade 1 diastolic dysfunction Mild mitral regurgitation No comparison studies are available. - Carotid artery ultrasound CONCLUSIONS Right ICA stenosis 50-69%. Left ICA stenosis < 50%. - Telemetry monitoring - A1c 6.5, low-dose insulin sliding scale -History of gastric ulcer, Protonix, Carafate -Hyperkalemia Kayexalate, insulin/D50, -Acute kidney injury, on CKD, creatinine 0.9 IV fluids -Metabolic acidosis, IV fluids, -Neurochecks, no stroke scale - Lipid panel - Full code - Lovenox for DVT prophylaxis PDMP PDMP Reviewed: Not Reviewed Attestations Medical Necessity Statement*: Patient requires hospitalization for acute CVA, hypertension, now with ANALI, hyperkalemia, hypertension Diagnoses Acute CVA (cerebrovascular accident) I63.9 Hyperkalemia E87.5 Essential hypertension I10 Hypercholesteremia E78.00 Type 2 diabetes mellitus E11.9 Peptic ulcer disease K27.9 Chronic renal insufficiency, stage II (mild) N18.2
[2024-09-09] VITALS (77 sets, daily range): BP systolic 151–213; BP diastolic 61–90; PULSE 55–89; RESP 0–24; TEMP 36.8; O2SAT 87–100
[2024-09-09 04:54] LABS: Hematocrit 34.4 % (37-53); Hemoglobin 11.40 g/dL (11.27-16.99); Mean Corpuscular HGB Conc 33.1 g/dL (30-55); Mean Corpuscular Hemoglobin 30.8 pg (27-33); Mean Corpuscular Volume 93.0 fl (82-101); Nucleated Red Blood Cells % 0 %; Platelet Count 158 10^3/cmm (157-399); Red Blood Count 3.70 10^6/uL (3.85-5.65); White Blood Count 6.58 10^3/uL (3.29-11.43)
[2024-09-09] MEDS: sucralfate 1 gm/10 mL Oral Liq UDC PO ×2 (05:09→11:18)
[2024-09-09] MEDS: pantoprazole 40 mg SDV IVP (05:09)
[2024-09-09 05:18] LABS: Alanine Aminotransferase 8 U/L (0-41); Albumin Level 3.3 g/dL (3.5-5.2); Alkaline Phosphatase 32 U/L (40-130); Anion Gap 15.8 (5-19); Aspartate Amino Transferase 10 U/L (0-40); Blood Urea Nitrogen 36 mg/dL (8-23); Calcium 7.8 mg/dL (8.5-10.5); Carbon Dioxide 22 mmol/L (22-29); Chloride 113 mmol/L (98-107); Creatinine Clr Calc Pharmacy 23.5206; Globulin 2.3 g/dL (1.3-4.6); Glucose 100 mg/dL (65-115); Magnesium 1.2 mg/dL (1.7-2.3); Osmolality Calculated 310 mOsm/kg (285-295); Potassium 4.8 mmol/L (3.5-5.1); Sodium 146 mmol/L (136-145); Total Protein 5.6 g/dL (6.6-8.7)
[2024-09-09] MEDS: magnesium sulfate premix 1 GM/100 ML PIGGYBACK IV (08:55)
--- NOTE | 2024-09-09 09:55 | PC.SOCIAL ---
IMM Updated Updated pt on IMM. No questions voiced. Provided pt a copy. Initialed, dated, & timed a copy & placed in chart.
--- NOTE | 2024-09-09 11:09 | PC.NURSE ---
Dr. Ramos ordered to not give the Hydralazine PO.
--- NOTE | 2024-09-09 11:24 | P.DS_ITS ---
Discharge Providers Date of Admission: 09/06/24 17:13 Date of Discharge: September 09, 2024 Attending Provider at Admission: Houston Ramos MD Attending Provider at Discharge: Houston Ramos MD Primary Care Provider: Irasema Hess MD Diagnoses at Discharge Discharge Diagnosis 1. Acute CVA (cerebrovascular accident): 2. Hyperkalemia: 3. Essential hypertension: 4. Hypercholesteremia: 5. Type 2 diabetes mellitus without complication, without long-term current use of insulin: 6. Peptic ulcer disease: 7. Chronic renal insufficiency, stage II (mild): Reason for Visit Reason for Visit: right side weakness Hospital Course Hospital Course Shay Mock is a 69 year old male with a past medical history of type 2 diabetes mellitus who presents to [facility] due to right-sided weakness, word finding difficulty, slurring of his words, right-sided facial droop, difficulty walking. Patient tells me that he woke up about 6 AM this morning, went to the bathroom had no significant issues, he went to bed, at about 10 AM this morning when he woke up he noted right-sided weakness, slurred speech, facial droop, had difficulty walking, he did not come to the emergency room until 3 PM, CT head no acute findings, MRI of the brain shows acute left basal ganglia stroke, his NIH stroke score, upon examination his NIH stroke scale is 5, he is out of the window for tPA, [facility] has been consulted by ER provider, who recommended medical management, This is a 69-year-old male who presents [facility] for acute CVA, right-sided deficits Acute CVA - Right-sided deficits - NIH stroke scale 5 - Out of the window for tPA - [facility] contacted - CT head no acute findings - MRI brain shows acute to subacute subcentimeter left basal ganglia lacunar infarct, left-sided vestibular schwannoma -Managed with aspirin, statin, Plavix - Allow for permissive hypertension completed window, started chlorthalidone 25 mg daily, Norvasc 10 mg daily, hydralazine 10 4 times daily, avoiding SARKIS/ARB given hyperkalemia - Bedside swallow eval - Speech therapy eval - PT OT - Cardiac echo CONCLUSIONS LV systolic function is normal with EF of 60-65% Grade 1 diastolic dysfunction Mild mitral regurgitation No comparison studies are available. - Carotid artery ultrasound CONCLUSIONS Right ICA stenosis 50-69%. Left ICA stenosis < 50%. - Overall clinically improved with no residual CV symptoms except mild right facial droop, mild slurring his words no right upper or right lower extremity weakness upon my examination, does have some unsteadiness on his feet, mild cerebellar signs - Will be discharged on aspirin, Plavix, statin - Blood pressure medications - With a close follow-up with neurology as outpatient - Patient was found to have right ICA stenosis of 50 to 69%, follow-up with vascular surgery as outpatient, cannot do a CTA given patient's creatinine of 2.7 - Patient was advised if he has any stroke symptoms to immediately call 911 For patient's ANALI on CKD, discharge with close follow-up with primary care, monitor creatinine on discharge through primary care For hyperkalemia, resolved, on discharge, avoid medications at increased risk of hyperkalemia, follow-up with nephrology as outpatient Physical Exam Const: COMMON NORMALS: no acute distress and patient oriented x3 Resp: COMMON NORMALS: normal respiratory effort, No retractions, No use of accessory muscles and clear to auscultation bilaterally AUSCULTATION: clear to auscultation bilaterally Cardio: COMMON NORMALS: regular rate, regular rhythm, S1 normal heart sound present and S2 normal heart sound present RATE: regular rate RHYTHM: regular rhythm HEART SOUNDS: S1 normal heart sound present and S2 normal heart sound present GI: COMMON NORMALS: Normal to inspection, nondistended, normoactive bowel sounds present and non-tender Extremity: COMMON NORMALS: no calf tenderness and no pedal edema Neuro: COMMON NORMALS: patient oriented x3, CN's II-XII intact bilaterally and moves all extremities Psych: COMMON NORMALS: mental status grossly normal Discharge Data Studies Completed and Pending Completed Studies During Hospitalization Category Date Time Status CT head thrombolytic [id number] Stat Cat Scan 09/06/24 15:29 Completed MR head wo con* [id number] Stat MRI 09/06/24 16:06 Completed CV carotid duplex BI* [id number] Routine Ultrasound 09/07/24 18:12 Completed CV. echo complete* [id number] Routine Ultrasound 09/07/24 18:12 Completed US renal BI* [id number] Routine Ultrasound 09/08/24 13:21 Completed Radiology Impressions Head CT 09/06/24 15:29 IMPRESSION: 1. Age-indeterminate right frontal lobe deep white matter hypodensities. Consider correlation with MRI for further evaluation. No evidence of large vascular territory infarct. ASSESSMENT: ASPECTS ([place] Stroke Program Early CT Score) is 10. ADDENDUM: 09/06/24 1553 Left-sided vestibular schwannoma noted corresponding to finding from MRI March 2024. The findings were verbally communicated by telephone with Dr. VINCENT at 3:49 PM CDT on 09/06/2024. Head MRI 09/06/24 16:06 IMPRESSION: 1. Acute-subacute subcentimeter left basal ganglia lacunar infarct. 2. Left-sided vestibular schwannoma. Renal Ultrasound 09/08/24 13:21 IMPRESSION: 1. Severe chronic medical renal disease. 2. No renal obstruction. Bilateral acquired renal cysts. Laboratory Results WBC 6.58 10^3/uL (3.29-11.43) 09/09/24 03:33 RBC 3.70 10^6/uL (3.85-5.65) L 09/09/24 03:33 Hgb 11.40 g/dL (11.27-16.99) 09/09/24 03:33 Hct 34.4 % (37-53) L 09/09/24 03:33 MCV 93.0 fl (82-101) 09/09/24 03:33 MCH 30.8 pg (27-33) 09/09/24 03:33 MCHC 33.1 g/dL (30-55) 09/09/24 03:33 RDW 12.5 % (12.1-15.1) 09/09/24 03:33 Plt Count 158 10^3/cmm (157-399) 09/09/24 03:33 MPV 10.0 fL (7.4-10.4) 09/09/24 03:33 Neut % (Auto) 58.7 % 09/09/24 03:33 Lymph % (Auto) 26.9 % 09/09/24 03:33 [place] % (Auto) 7.9 % 09/09/24 03:33 Eos % (Auto) 4.6 % 09/09/24 03:33 Baso % (Auto) 1.1 % 09/09/24 03:33 Neut # (Auto) 3.87 10^3/uL (1.8-7.7) 09/09/24 03:33 Lymph # (Auto) 1.8 10^3/uL (0.8-4.8) 09/09/24 03:33 [place] # (Auto) 0.5 10^3/uL (0.2-0.9) 09/09/24 03:33 Eos # (Auto) 0.3 10^3/uL (0.0-0.8) 09/09/24 03:33 Baso # (Auto) 0.1 10^3/uL (0.0-0.1) 09/09/24 03:33 Nucleated RBC % (auto) 0 % 09/09/24 03:33 Nucleated RBCs # 0.0 /100WBC 09/09/24 03:33 PT 12.70 SECONDS (12.1-14.9) 09/06/24 18:33 INR 0.89 (0.8-1.2) 09/06/24 18:33 APTT 25.9 SECONDS (23.9-36.7) 09/06/24 18:33 Sodium 146 mmol/L (136-145) H 09/09/24 03:33 Potassium 4.8 mmol/L (3.5-5.1) 09/09/24 03:33 Chloride 113 mmol/L (98-107) H 09/09/24 03:33 Carbon Dioxide 22 mmol/L (22-29) 09/09/24 03:33 Anion Gap 15.8 (5-19) 09/09/24 03:33 BUN 36 mg/dL (8-23) H 09/09/24 03:33 Creatinine 2.7 mg/dL (0.7-1.2) H 09/09/24 03:33 GFR Calculation 23.5 mL/min (90-130) L 09/09/24 03:33 Glucose 100 mg/dL (65-115) 09/09/24 03:33 POC Glucose 207 mg/dL (70-110) H 09/09/24 07:53 Estimat Average Glucose 140 09/06/24 15:30 Hemoglobin A1c 6.5 % (4.0-6.0) H 09/06/24 15:30 Calculated Osmolality 310 mOsm/kg (285-295) H 09/09/24 03:33 Calcium 7.8 mg/dL (8.5-10.5) L 09/09/24 03:33 Phosphorus 4.1 mg/dL (2.5-4.5) 09/09/24 03:33 Magnesium 1.2 mg/dL (1.7-2.3) L 09/09/24 03:33 Total Bilirubin 0.3 mg/dL (0.15-1.2) 09/09/24 03:33 AST 10 U/L (0-40) 09/09/24 03:33 ALT 8 U/L (0-41) 09/09/24 03:33 Alkaline Phosphatase 32 U/L (40-130) L 09/09/24 03:33 NT-Pro-B Natriuret Pep 1217 pg/mL (0-125) H 09/06/24 15:30 Total Protein 5.6 g/dL (6.6-8.7) L 09/09/24 03:33 Albumin 3.3 g/dL (3.5-5.2) L 09/09/24 03:33 Globulin 2.3 g/dL (1.3-4.6) 09/09/24 03:33 Triglycerides 244 mg/dL (0-150) H 09/06/24 15:30 Cholesterol 207 mg/dL (0-200) H 09/06/24 15:30 LDL Cholesterol, Calc 124 mg/dL (50-129) 09/06/24 15:30 HDL Cholesterol 34 mg/dL (60-100) L 09/06/24 15:30 LDL/HDL Ratio 3.65 RATIO (0.00-3.22) H 09/06/24 15:30 Cholesterol/HDL Ratio 6.09 mg/dL (1.0-5.00) H 09/06/24 15:30 TSH 2.14 uIU/mL (0.27-4.20) 09/06/24 15:30 Urine Color Yellow (Yellow) 09/06/24 17:17 Urine Appearance Clear (CLEAR) 09/06/24 17:17 Urine pH 5.0 (5-7) 09/06/24 17:17 Ur Specific [place] 1.015 (1.005-1.030) 09/06/24 17:17 Urine Protein 3+ (Negative) A 09/06/24 17:17 Urine Glucose (UA) Negative (Normal) 09/06/24 17:17 Urine Ketones Negative (Negative) 09/06/24 17:17 Urine Blood Negative (Negative) 09/06/24 17:17 Urine Nitrate Negative (Negative) 09/06/24 17:17 Urine Bilirubin Negative (Negative) 09/06/24 17:17 Urine Urobilinogen 0.2 mg/dL (Negative) 09/06/24 17:17 Ur Leukocyte Esterase Negative (Negative) 09/06/24 17:17 Urine RBC 0-2 /hpf (0-2) 09/06/24 17:17 Urine WBC 0-5 /hpf (0-5) 09/06/24 17:17 Ur Squamous Epith Cells 0-5 /hpf (0-5) 09/06/24 17:17 Amorphous Sediment Not Reportable 09/06/24 17:17 Urine Bacteria None seen /hpf (NONE) 09/06/24 17:17 Hyaline Casts 5.77 /lpf 09/06/24 17:17 Vitals Last Vital Signs Temp 98.3 F 09/09/24 08:00 Pulse 60 09/09/24 07:30 Resp 24 H 09/09/24 08:00 BP 195/83 09/09/24 08:00 Pulse Ox 100 09/09/24 08:00 O2 Del Method Room Air 09/09/24 08:00 Discharge Plan Discharge Patient Disposition: Home Condition: Stable Prescriptions: New atorvastatin 40 mg Tablet 40 mg PO BEDTIME 30 Days Qty: 30 0RF clopidogrel 75 mg Tablet 75 mg PO DAILY 21 Days Qty: 21 0RF aspirin 81 mg Tablet,Delayed Release (Dr/Ec) 81 mg PO DAILY 30 Days Qty: 30 0RF amlodipine 10 mg Tablet 10 mg PO DAILY 30 Days Qty: 30 0RF sucralfate [Carafate] 1 gram tablet 1 g PO BID 28 Days Qty: 56 0RF pantoprazole [Protonix] 40 mg tablet,delayed release (DR/EC) 40 mg PO BID 30 Days Qty: 60 0RF chlorthalidone 25 mg tablet 25 mg PO DAILY 30 Days Qty: 30 0RF hydralazine 10 mg tablet 10 mg PO Q6H 30 Days Qty: 120 0RF clonidine HCl 0.1 mg tablet 0.1 mg PO Q12H PRN (Reason: hypertensive emergency sbp>180 or dbp>100) 30 Days Qty: 60 0RF insulin aspart U-100 [Novolog FlexPen U-100 Insulin] 100 unit/mL (3 mL) insulin pen See Rx Instructions .ROUTE .COMPLEX Qty: 15 0RF Rx Instructions: Inject, subcut, 3 times daily, after meals, based on low-dose sliding scale Continued loratadine [Allergy Relief (loratadine)] 10 mg tablet,disintegrating 10 mg PO DAILY PRN (Reason: allergy symptoms) Qty: 90 0RF (DME) freestyle test strips/lancets See Rx Instructions .Route .MEDSUPPLY Qty: 1 2RF Rx Instructions: As directed pantoprazole [Protonix] 40 mg tablet,delayed release (DR/EC) 40 mg PO DAILY Januvia 100 mg tablet 100 mg PO DAILY tamsulosin [Flomax] 0.4 mg capsule 0.4 mg PO DAILY omega-3 fatty acids-fish oil [Fish Oil] 360-1,200 mg Capsule 1 cap PO DAILY Centrum Silver Men [id number] mcg Tablet 1 tab PO DAILY Discontinued valsartan 40 mg tablet 40 mg PO BID Discharge Order = DC NOW: Discharge Order (Routine); Ordered 09/09/24 Ordered By: Houston Ramos Other Ambulatory Orders: MCT/Event Monitor 30 Days (Routine) Timeframe: 1 Day Facility: [facility] - Location: Radiology Ordered By: Houston Ramos Referrals: [place] [facility] [Outside, Nephrology] - 1-3 days Referral Note: CKD Lizzy Francis MD [Physician, Neurology] - 09/24/24 11:00 am Referral Note: Irasema Cruz MD [Primary Care Provider, [facility]] - 09/14/24 1:00 pm Referral Note: bp check Sathya Appiah M.D [Physician, Cardiology] - 1 month Referral Note: Armando Jensen MD [Occupational Therapist, Vascular Surgery] - 1 week Referral Note: carotid disease Discharge Diet: Cardiac Discharge Activity: Resume usual activity Patient Instructions: Aspirin (By mouth), Amlodipine (By mouth), Atorvastatin (By mouth), Clopidogrel (By mouth), Pantoprazole (By mouth), Chronic Kidney Disease (DC), Hyperkalemia (DC), Self Care Measures After a Stroke (DC), Opioid Safety, Patient Portal & Basil Instructions Activity Restrictions/Additional Instructions: -if any stroke symptoms call 911 -please monitor blood pressure BID, record on log, bring to primary care -for carotid disease follow up with vascular surgery -please take aspirin as prescribed -if any strokes sympotoms call 911 -please follow up with primary care about kidney function, cr on discharged is 2.7 and potassium monitoring -Please monitor your blood sugars closely -Monitor your blood sugars 3 times daily as after meals -Please record your blood sugars, and a blood sugar log -For your NovoLog -Please inject blood sugar after meals based on sliding scale provided -Do not inject insulin if you do not eat as hypoglycemia kills -This is a NovoLog sliding scale -Insulin sliding ?fingerstick? Insulin ?141-180?0 units/sq 181-220?2 units/sq ?221-260?4 units/sq ?261-300 6 units/sq ?301-350?8 units/sq ?351-400 10 units/sq ?401-450?12 units/sq >450? 14units/sq -If your blood sugar is greater than 500 go to the emergency room -If your blood sugar is less than 60 or at anytime you feel lightheaded or dizzy or diaphoretic or have chest palpitations check your blood sugar, and eat a hard candy or drink orange juice and go immediately to the emergency room -Remember hypoglycemia kills, so if his blood sugar is less than 60 we have to increase it by taking in a sugary meal such as a hard candy or orange juice and go to the emergency room -If you have any questions please call us where here to help Discharge Attestations Time Spent in Discharge Care*: greater than 30 min Quality Metrics Clinical Quality Measures [ No reported AMI, CVA or VTE this stay] Coding Level of Care Code 93681 Total time (in minutes) for Discharge: 45 Diagnoses Acute CVA (cerebrovascular accident) I63.9 Hyperkalemia E87.5 Essential hypertension I10 Hypercholesteremia E78.00 Type 2 diabetes mellitus without complication, without long-term current use of insulin E11.9 Diabetes mellitus terminal makeup operator insulin use: without terminal makeup operator use Diabetes mellitus complication status: without complication Peptic ulcer disease K27.9 Chronic renal insufficiency, stage II (mild) N18.2
== END 2024-09-09 13:26 | disposition home or self-care (01) | DRG 65 ==
LOC: ER 15:43 → ER IP 18:10 → ICU 23:52
PROVIDERS: Admitting Provider Family Medicine; Emergency Provider Emergency Medicine; PCP Family Medicine; Visit Provider Family Medicine
DX: I63.81 Other cerebral infarction due to occlusion or stenosis of small artery (principal); G81.91 Hemiplegia, unspecified affecting right dominant side; N17.9 Acute kidney failure, unspecified; R29.810 Facial weakness; R47.81 Slurred speech; I12.9 Hypertensive chronic kidney disease with stage 1 through stage 4 chronic kidney disease, or unspecified chronic kidney disease; N18.9 Chronic kidney disease, unspecified; R29.705 NIHSS score 5; E87.5 Hyperkalemia; E78.5 Hyperlipidemia, unspecified; E11.22 Type 2 diabetes mellitus with diabetic chronic kidney disease; Z79.84 Long term (current) use of oral hypoglycemic drugs; K21.9 Gastro-esophageal reflux disease without esophagitis
CPT/HCPCS: 36415; 36416; 70450; 70551; 76770; 80048; 80053; 80061; 81001; 82962; 83036; 83735; 83880; 84100; 84443; 85025; 85610; 85730; 92507; 92523; 92610; 93005; 93306; 93880; 94664; 96372; 96374; 96376; 97110; 97161; 97166; 99285; J1650; J1815; J2470; J3475; J7030; J7040; J7799; J9999

== ENCOUNTER → 2024-10-06 12:30 | Outpatient (BNVA) | payer MEDICARE, OTHER, SELFPAY | PROVIDERS: PCP Family Medicine; Visit Provider Internal Medicine | DX: Z86.73 Personal history of transient ischemic attack (TIA), and cerebral infarction without residual deficits (principal); I10 Essential (primary) hypertension; E78.00 Pure hypercholesterolemia, unspecified; I77.9 Disorder of arteries and arterioles, unspecified; E11.9 Type 2 diabetes mellitus without complications; Z79.4 Long term (current) use of insulin; F17.290 Nicotine dependence, other tobacco product, uncomplicated; Z79.02 Long term (current) use of antithrombotics/antiplatelets; Z79.82 Long term (current) use of aspirin | CPT/HCPCS: 99204 ==

== ENCOUNTER → 2024-11-09 14:27 | Outpatient (BNVA) | payer MEDICARE, OTHER, SELFPAY | PROVIDERS: PCP Family Medicine; Visit Provider Family Medicine | DX: I10 Essential (primary) hypertension (principal); E11.9 Type 2 diabetes mellitus without complications; E78.00 Pure hypercholesterolemia, unspecified | CPT/HCPCS: 80053; 83036; 85025 ==

== ENCOUNTER → 2024-12-21 14:19 | Outpatient (BNVA) | payer MEDICARE, OTHER, SELFPAY | PROVIDERS: PCP Family Medicine; Visit Provider Family Medicine | DX: E11.22 Type 2 diabetes mellitus with diabetic chronic kidney disease (principal); I12.9 Hypertensive chronic kidney disease with stage 1 through stage 4 chronic kidney disease, or unspecified chronic kidney disease; N18.2 Chronic kidney disease, stage 2 (mild); Z79.4 Long term (current) use of insulin | CPT/HCPCS: 80053 ==